=== PATIENT | female | born 1955 | race Caucasian/White ===

== ENCOUNTER 2020-01-16 09:33 | Outpatient (CLI) | payer BC, SELFPAY ==
--- NOTE | ~2020-01-16 | MM_ITS ---
EXAMINATION: MM screening kaushik BI w saray HISTORY: Screening mammogram TECHNIQUE: Craniocaudal and mediolateral oblique 3-D tomosynthesis images were obtained and synthetic 2-D images were generated. CAD analysis was submitted and interpreted. COMPARISON: Comparison to multiple prior studies sequentially, with oldest reviewed study dated 03/07. BREAST PARENCHYMAL COMPOSITION: The breasts are heterogeneously dense, which may obscure small masses . FINDINGS: There is no evidence of suspicious mass, calcification, or architectural distortion to sugg est malignancy in either breast. There has been no suspicious interval change. IMPRESSION: 1. No mammographic evidence of malignancy. 2. Recommend routine screening mammography in one year. BI-RADS Category 1: Negative Reviewed, dictated and finalized at location A.
== END 2020-01-16 09:34 | disposition home or self-care (01) ==
PROVIDERS: PCP Physician Assistant; Visit Provider Obstetrics & Gynecology
DX: Z12.31 Encounter for screening mammogram for malignant neoplasm of breast (principal)
CPT/HCPCS: 77063; 77067

== ENCOUNTER 2020-02-03 12:11 | Emergency (ER) | payer BC, SELFPAY ==
--- NOTE | ~2020-02-03 | XR_ITS ---
XR ankle RT min 3V DATE: 02/03/2020 12:42 INDICATION: Twisted ankle going down is the patella. Lateral pain. TECHNIQUE: 4 views COMPARISON: None FINDINGS: Plantar calcaneal enthesopathy, without erosive change or periostitis. No fracture or dislocation of the ankle or disruption of the ankle mortise. No periosteal reaction or bone destruction. IMPRESSION: Plantar calcaneal enthesopathy Reviewed, dictated and finalized at location A.
[2020-02-03 12:20] VITALS: BP 154/92; PULSE 94; RESP 20; TEMP 36.2; O2SAT 96
--- NOTE | 2020-02-03 12:33 | ED.LOWEXIN ---
HPI - Extremity Injury (Lower) General Chief Complaint: Extremity Injury, Lower Stated Complaint: right ankle pain Time Seen by Provider: 02/03/20 12:33 Source: patient Mode of arrival: ambulatory Limitations: no limitations History of Present Illness HPI Narrative: Sanaz Wren is a 64 yo female with a PMH of RA, smoking, who fell down the hill while drinking brush last night and twisted her right ankle. Pain is posterior that comes around to the right lateral side of ankle and she wants an x-ray to make sure it is only sprain Related Data Home Medications Medication Instructions Recorded Confirmed amoxicillin 500 mg PO DAILY 02/03/20 02/03/20 budesonide-formoterol [Symbicort] 1 inh INHALATION DAILY 02/03/20 02/03/20 celecoxib 200 mg PO DAILY 02/03/20 02/03/20 gabapentin 300 mg PO DIRECTED 02/03/20 02/03/20 lamotrigine 200 mg PO DAILY 02/03/20 02/03/20 leflunomide 20 mg PO DAILY 02/03/20 02/03/20 mometasone 0.1 % TOPICAL DIRECTED 02/03/20 02/03/20 prednisone 5 mg PO DAILY 02/03/20 02/03/20 tramadol 50 mg PO DIRECTED 02/03/20 02/03/20 venlafaxine 225 mg PO DIRECTED 02/03/20 02/03/20 Allergies Allergy/AdvReac Type Severity Reaction Status Date / Time iodine Allergy Severe HIVES Verified 02/03/20 12:22 crab Allergy Unknown hives, Verified 02/03/20 12:22 throat swells shellfish derived Allergy Unknown unknown Verified 02/03/20 12:22 Shrimp Allergy Unknown unkown Uncoded 02/03/20 12:22 Review of Systems Review of Systems: Narrative: CONSTITUTIONAL: Denies fever, chills, sweats. EYES: Denies visual changes, redness, discharge. ENT: Denies rhinorrhea, congestion, sore throat, otalgia. CARDIOVASCULAR: Denies chest pain, palpitations, edema. RESPIRATORY: Denies dyspnea, wheezing, cough GASTROINTESTINAL: Denies abdominal pain, nausea, vomiting, diarrhea. GENITOURINARY: Denies dysuria, hematuria, abnormal discharge SKIN: Denies rash or itching. NEUROLOGIC: Denies numbness, or focal weakness. PSYCHIATRIC: Denies anxiety or depression. Right ankle lateral pain PMFSH Family History Family History Father Cerebrovascular accident, Onset Age: 62 Patient's father is , Onset Age: 62 Other Diabetes mellitus Family history of alcoholism Family history of arthritis Family history of mental disorder Social History Social History Smoking status: Current every day smoker Second hand tobacco smoke exposure: No Alcohol intake: never Comments At time of signature, I agree with nursing past medical, surgical, social and family history. There is no relevant family history pertinent to the presenting complaint. Blood pressure is elevated probably due to pain; referred to follow-up with primary Exam Narrative: Exam Narrative: GENERAL: This is a well-nourished, well-developed patient, in mild distress. HEAD: normocephalic, atraumatic. EYES: Sclera clear/white. Vision is grossly intact. EARS: External ears normal, . Hearing grossly intact. NOSE: External nose normal without nasal discharge, nares without redness, no rhinorrhea. THROAT: Mucous membranes moist, NECK: Neck supple, CARDIOVASCULAR: Regular rate and rhythm without murmurs, gallops, or rubs. RESPIRATORY: Clear to auscultation. Breath sounds equal bilaterally. No wheezes, rales, or rhonchi. GASTROINTESTINAL: Abdomen soft, SKIN: warm, intact with no suspicious lesions or rash, good texture and turgor. NEURO: awake, alert, and oriented to person, place and time. There were no obvious focal neurologic abnormalities. Steady gait EXTREMITIES: Normal range of motion on L- Pain on Posterior ankle with motion, Lateral side pain, able to flex without movement BACK: Nontender without deformity Course Course Emergency Course: Xray of L ankle -plantar calcaneal enthesopathy pt using boot at home -continue using boot at
== END 2020-02-03 13:06 | disposition home or self-care (01) ==
PROVIDERS: Emergency Provider Nurse Practitioner; PCP Physician Assistant
DX: S93.401A Sprain of unspecified ligament of right ankle, initial encounter (principal); S96.911A Strain of unspecified muscle and tendon at ankle and foot level, right foot, initial encounter; W17.81XA Fall down embankment (hill), initial encounter; Z96.649 Presence of unspecified artificial hip joint; F32.9 Major depressive disorder, single episode, unspecified; M32.9 Systemic lupus erythematosus, unspecified; F17.200 Nicotine dependence, unspecified, uncomplicated
CPT/HCPCS: 73610; 99213; G0463

== ENCOUNTER 2020-04-12 13:54 | Emergency (ER) | payer BC, SELFPAY ==
--- NOTE | ~2020-04-12 | XR_ITS ---
EXAMINATION: XR chest 2V DATE: 04/12/2020 14:43 INDICATION: Cough and wheezing. TECHNIQUE: Frontal and lateral views of the chest were obtained. COMPARISON: Chest 2 views 01/01/2018 FINDINGS: There are airspace opacities in left upper lobe, consistent with pneumonia. No pleural effu blaise or pneumothorax. The heart size is normal. IMPRESSION: 1. Left upper lobe pneumonia. Reviewed, dictated and finalized at location A.
[2020-04-12 14:05] VITALS: BP 139/71; PULSE 120; RESP 26; TEMP 37.7; O2SAT 92
--- NOTE | 2020-04-12 14:09 | ED.URI ---
HPI - URI/Sore Throat General Chief Complaint: Unspecified Stated Complaint: cough fever chills Time Seen by Provider: 04/12/20 14:10 Source: patient and RN notes reviewed History of Present Illness HPI Narrative: Patient is a 65-year-old female who presents the urgent care with complaints of cough, fever, chills, dizziness, headache, wheezing. Patient states she does have a chronic cough and is a longtime smoker. Patient states that she was directed by her PCP to be seen at the facility due to her cold-like symptoms. Patient did get a COVID test scheduled for tomorrow. States that her symptoms started approximately 10 days ago and seem to be worsening. Patient states that she has been using her prescription tramadol for symptom relief and reports a fever of 100 Fahrenheit to be the highest value. Patient states that she does get winded easily. Patient seems to be slightly confused. Patient spouse confirms confusion. Patient and spouse aware of the plan of care. Some parts of this dictation were generated by voice recognition software and may contain typographical and/or grammatical inaccuracies. Related Data Home Medications Medication Instructions Recorded Confirmed celecoxib 200 mg PO DAILY 02/03/20 04/12/20 gabapentin 300 mg PO DIRECTED 02/03/20 04/12/20 lamotrigine 200 mg PO DAILY 02/03/20 04/12/20 leflunomide 20 mg PO DAILY 02/03/20 04/12/20 tramadol 50 mg PO DIRECTED 02/03/20 04/12/20 venlafaxine 225 mg PO DIRECTED 02/03/20 04/12/20 folic acid 1 mg PO DAILY 04/12/20 04/12/20 Allergies Allergy/AdvReac Type Severity Reaction Status Date / Time iodine Allergy Severe HIVES Verified 04/12/20 14:18 crab Allergy Unknown hives, Verified 04/12/20 14:18 throat swells shellfish derived Allergy Unknown unknown Verified 04/12/20 14:18 Shrimp Allergy Unknown unkown Uncoded 02/03/20 12:22 Review of Systems Review of Systems: Narrative: CONSTITUTIONAL: Reports of fever, chills, sweats EYES: Denies visual changes, redness, or discharge. ENT: Denies rhinorrhea, congestion, sore throat, or otalgia. CARDIOVASCULAR: Denies chest pain, palpitations, or edema. RESPIRATORY: Reports of cough and shortness of breath GASTROINTESTINAL: Denies abdominal pain, nausea, vomiting, or diarrhea. GENITOURINARY: Denies dysuria or hematuria. SKIN: Denies rash or itching. MUSCULOSKELETAL: Reports of body aches NEUROLOGIC: Reports of dizziness and fatigue All other systems reviewed are negative, except as documented in HPI. PMFSH Social History Social History Smoking status: Current every day smoker Second hand tobacco smoke exposure: No Alcohol intake: never Comments At the time of my signature, I reviewed and agree with the nursing past medical, surgical, social, and family history. There is no relevant family history pertinent to the patient complaint. Exam Narrative: Exam Narrative: GENERAL: This is a well-nourished, well-developed patient, diaphoretic HEAD: normocephalic, atraumatic. EYES: Pinpoint pupils. Sclera clear/white. Vision is grossly intact. EARS: External ears normal NOSE: External nose normal with no obvious nasal discharge, nares without redness, no rhinorrhea. THROAT: Mucous membranes dry, posterior pharynx clear. Mild postnasal drainage NECK: Neck supple CARDIOVASCULAR: Tachycardic RESPIRATORY: Crackles and expiratory wheezes to left upper lobe, slightly diminished left lower lobe SKIN: Diaphoretic/pale and poor turgor. Dry mouth NEURO: A&O 3, slightly confused which was confirmed by patient's spouse; moves all extremities without difficulty and follows commands EXTREMITIES: No clubbing, cyanosis, or edema. Course Vital Signs Vital signs: Vital Signs Temperature 100 F H 04/12/20 14:05 Pulse Rate 120 H 04/12/20 14:05 Respiratory Rate 26 H 04/12/20 14:05 Blood Pressure 139/71 04/12/20 14:05 Pulse Oximetry 92 04/12/20 14:05
--- NOTE | 2020-04-12 14:52 | ECG_ITS ---
Measurements Intervals [place] Rate: 114 P: 32 SC: 128 QRS: 34 QRSD: 93 T: 22 QT: 306 QTc: 422 Interpretive Statements SINUS TACHYCARDIA POSSIBLE LEFT ATRIAL ENLARGEMENT INCOMPLETE RIGHT BUNDLE BRANCH BLOCK ABNORMAL ECG Electronically Signed On 04-12-2020 18:46:28 CDT by Som Segundo D.O.
== END 2020-04-12 15:05 | disposition short-term general hospital (02) ==
PROVIDERS: Emergency Provider Nurse Practitioner Family; PCP Internal Medicine
DX: J18.9 Pneumonia, unspecified organism (principal); M06.9 Rheumatoid arthritis, unspecified; Z96.649 Presence of unspecified artificial hip joint; M32.9 Systemic lupus erythematosus, unspecified; F32.9 Major depressive disorder, single episode, unspecified; I45.10 Unspecified right bundle-branch block
CPT/HCPCS: 71046; 87804; 93005; 99213; G0463

== ENCOUNTER 2020-07-02 11:32 | Emergency (ER) | payer BC, SELFPAY ==
--- NOTE | ~2020-07-02 | XR_ITS ---
EXAMINATION: XR foot LT min 3V DATE: 07/02/2020 12:00 INDICATION: Medial tarsal pain after stepping wrong. TECHNIQUE: Dorsoplantar, two oblique and lateral views of the left foot were obtained. COMPARISON: None. FINDINGS: Alignment is normal. No fracture. Mild polyarticular osteoarthritis at the first metatarsophalangeal and multiple tarsometatarsal and interphalangeal joints. Small plantar calcaneal spur and tiny enthes opathic ossicles at the distal Achilles tendon. Small bone islands at the distal fibular metadiaphysi s at the base of the first proximal phalanx. Diffuse osteopenia. Soft tissue swelling at the dorsal m edial aspect of the midfoot. IMPRESSION: 1. Mild scattered degenerative skeletal changes. No acute osseous abnormality. Reviewed, dictated and finalized at location [facility] [employer]
[2020-07-02 11:39] VITALS: BP 157/104; PULSE 86; RESP 16; TEMP 36.1; O2SAT 98
--- NOTE | 2020-07-02 12:27 | ED.LOWEXIN ---
HPI - Extremity Injury (Lower) General Chief Complaint: Extremity Injury, Lower Stated Complaint: Lower extremity injury/foot Time Seen by Provider: 07/02/20 12:00 Source: patient and RN notes reviewed Mode of arrival: ambulatory Limitations: no limitations History of Present Illness HPI Narrative: 65-year-old female who presents to express care with complaints of pain to her her left foot since day before yesterday. Patient states that she was standing and turned pivoting on her left foot and heard a pop in foot. Patient states that she has been having some severe pain to the medial aspect of her left foot and some swelling noted there and under left lateral malleolus. Patient states that pain is a 10/10 with some movements of her foot, patient is ambulating on foot with a limp. Patient states that for the past 2 nights she has taken left over [place] so she could sleep and has been using ice to her foot along with anti-inflammatory medication such as Ibuprofen. Patient does have history of lupus and rheumatoid arthritis. MD complaint: foot injury Onset (ago): day(s) (2) Injury: Left: foot (medial aspect foot lateral ankle under malleolus) Type of Injury: other (pivoted foot) Place: home Severity: severe Severity scale (1-10): 10 Relieving factors: cold therapy, rest and other (left over [place]) Exacerbating factors: weight bearing Context: other (pivoted heard pop) Associated symptoms: snap/pop sensation, swelling and able to partially bear weight Other symptoms: none Treatments prior to arrival: cold therapy and other (left over [place] pain medication) Related Data Home Medications Medication Instructions Recorded Confirmed celecoxib 200 mg PO DAILY 02/03/20 07/02/20 gabapentin 300 mg PO DIRECTED 02/03/20 07/02/20 lamotrigine 200 mg PO DAILY 02/03/20 07/02/20 leflunomide 20 mg PO DAILY 02/03/20 07/02/20 tramadol 50 mg PO DIRECTED 02/03/20 07/02/20 venlafaxine 225 mg PO DIRECTED 02/03/20 07/02/20 folic acid 1 mg PO DAILY 04/12/20 07/02/20 abatacept (with maltose) 250 mg 500 mg IVPB ONCE 04/20/20 07/02/20 intravenous solution acetaminophen 650 mg 1,300 mg PO QAM tablet 04/20/20 07/02/20 tablet,extended release cholecalciferol (vitamin D3) 125 125 mcg PO DAILY 04/20/20 07/02/20 mcg (5,000 unit) capsule diphenhydramine 25 2 tablet PO .qhs tablet 04/20/20 07/02/20 mg-acetaminophen 500 mg tablet evening primrose oil-linoleic 3 cap PO .QHS cap 04/20/20 07/02/20 acid-gamolenic acid 1,000 mg capsule prednisolone 5 mg tablet 5 mg PO BID 04/20/20 07/02/20 valacyclovir 500 mg tablet 500 mg PO DAILY 04/20/20 07/02/20 Allergies Allergy/AdvReac Type Severity Reaction Status Date / Time iodine Allergy Severe HIVES Verified 07/02/20 12:05 crab Allergy Unknown hives, Verified 07/02/20 12:05 throat swells shellfish derived Allergy Unknown unknown Verified 07/02/20 12:05 Shrimp Allergy Unknown unkown Uncoded 02/03/20 12:22 Review of Systems Review of Systems: Narrative: CONSTITUTIONAL: Denies fever, chills, or sweats. EYES: Denies visual changes, redness, or discharge. ENT: Denies rhinorrhea, congestion, sore throat, or otalgia. CARDIOVASCULAR: Denies chest pain, palpitations, or edema. RESPIRATORY: Denies cough or dyspnea. GASTROINTESTINAL: Denies abdominal pain, nausea, vomiting, or diarrhea. GENITOURINARY: Denies dysuria or hematuria. SKIN: Denies rash or itching. MUSCULOSKELETAL:History of chronic back pain,positive for left dorsal medial foot pain and swelling with swelling also to lateral area under malleolus. NEUROLOGIC: Denies headache, numbness, or weakness. PSYCHIATRIC: Positive history of anxiety or depression. All systems reviewed & are unremarkable except as noted in HPI and below PMFSH Past Medical History Medical History (Updated 07/04/20 @ 13:51 by Janet Villegas NP) Chronic back pain Depression History of hysteroscopy Lupus Rheumatoid arthritis Surgical History Surgical Histor
== END 2020-07-02 12:49 | disposition home or self-care (01) ==
PROVIDERS: Emergency Provider Registered Nurse; PCP Internal Medicine
DX: M19.072 Primary osteoarthritis, left ankle and foot (principal); F17.200 Nicotine dependence, unspecified, uncomplicated; M06.9 Rheumatoid arthritis, unspecified; M32.9 Systemic lupus erythematosus, unspecified
CPT/HCPCS: 73630; 99213; G0463

== ENCOUNTER 2021-05-15 13:25 | Outpatient (CLI) | payer BC, SELFPAY ==
--- NOTE | ~2021-05-15 | MMUS_ITS ---
EXAMINATION: MM diagnostic kaushik BI w saray, US breast LT complete HISTORY: Left axillary lump TECHNIQUE: ML, MLO and craniocaudal 3-D tomosynthesis images of both breasts were performed and synth etic 2-D images were generated. CAD analysis was submitted and interpreted. High resolution complete left breast ultrasound including all 4 quadrants and subareolar area and left axillary ultrasound was performed. COMPARISON: 01/16/2020, 02/04/2018, 01/02/2016 bilateral digital screening mammogram examinations BREAST PARENCHYMAL COMPOSITION: The breasts are heterogeneously dense, which may obscure small masses . FINDINGS: MAMMOGRAPHIC FINDINGS: Scattered bilateral benign calcifications. No suspicious mass or architectural distortion, malignant calcification, skin thickening or retraction or significant new or developing density is detected. ULTRASOUND: No suspicious mass or shadowing grossly of sonographic abnormality of the left breast or left axilla is detected. IMPRESSION: 1. Benign findings 2. Routine mammographic screening is recommended. BI-RADS Category 2: Benign finding(s). Reviewed, dictated and finalized at location A. IMPRESSION: 1. Benign findings 2. Routine mammographic screening is recommended. BI-RADS Category 2: Benign finding(s).
== END 2021-05-15 13:26 | disposition home or self-care (01) ==
LOC: ANHIMG 13:29
PROVIDERS: PCP Physician Assistant; Visit Provider Student in an Organized Health Care Education/Training Program
DX: N63.10 Unspecified lump in the right breast, unspecified quadrant (principal); N63.20 Unspecified lump in the left breast, unspecified quadrant; R92.2 Inconclusive mammogram
CPT/HCPCS: 76641; 77062; 77066; G0279

== ENCOUNTER 2022-10-14 01:28 | Day surgery (SDC) | payer BC, SELFPAY ==
[2022-08-26 15:10] VITALS: BMI 33.3
[2022-10-06 11:25] VITALS: BMI 33.3
[2022-10-14 06:15] VITALS: BP 144/86; PULSE 94; RESP 18; TEMP 36.3; O2SAT 96
[2022-10-14 06:24] VITALS: BMI 32.5
[2022-10-14] MEDS: LACTATED RINGERS 1,000 ML 150 ML IV CONT (06:35)
--- NOTE | 2022-10-14 07:35 | PM.HPGS ---
History of Present Illness History of Present Illness Consent: Risks, benefits, and alternatives have been discussed and questions answered. Patient agrees to proceed with procedure. Chief complaint: neoplasm screening Narrative: Sanaz Wren is a 67 year old female with history of colon polyps Review of Systems Constitutional: Constitutional: Denies headache(s) and Denies weakness Eyes: Eyes: Denies blurry vision ENT: Reports Normal hearing present, Denies headache(s) and Denies neck pain Cardiovascular: Cardiovascular: Denies chest pain and Denies dyspnea Respiratory: Respiratory: Denies dyspnea Gastrointestinal: Gastrointestinal: Reports no additional gastrointestinal complaints Genitourinary: Genitourinary: Denies dysuria Musculoskeletal: Musculoskeletal: Denies neck pain Integumentary/Breasts: Skin/Breast: Denies dry skin Neurologic: Reports Normal hearing present, Denies headache(s) and Denies weakness Psychiatric: Psychiatric: Denies anxiety Endocrine: Endocrine: Denies change in body appearance Hematologic/Lymphatic: Hematologic/Lymphatic: Denies easy bleeding Allergic/Immunologic: Allergic/Immunologic: Denies urticaria PMFSH Past Medical History Medical History (Updated 10/14/22 @ 07:36 by Elian Cintron MD) Adenomatous colon polyp Arthritis of carpometacarpal (CMC) joint of right thumb Chronic back pain Depression Lupus Macrocytosis Rheumatoid arthritis Surgical History Surgical History (Updated 06/02/22 @ 10:28 by SERVANDO Vargas) History of hysteroscopy History of right hip replacement History of tubal ligation Previous section 1979, 1983 Family History Family History (Updated 06/02/22 @ 10:29 by SERVANDO Vargas) Father Cerebrovascular accident, Onset Age: 62 Patient's father is , Onset Age: 62 Other Diabetes mellitus Family history of alcoholism Family history of arthritis Family history of mental disorder Hypertension Social History Social History (Updated 06/02/22 @ 10:29 by SERVANDO Vargas) Smoking packs per day: 1 Smoking cigarettes per day: 20.0 Years smoked: 30 Smoking pack-years: 30.00 Smoking status: Current every day smoker Tobacco type: cigarettes Second hand tobacco smoke exposure: No Additional smoking assessment comments: TAKING CHANTIX- COUPLE PUFFS A DAY CURRENTLY Alcohol intake: former Alcohol use details: 2013 alcohol abuse Substance use: never Substance use type: does not use Other substance usage details: takes tramadol Living arrangements: with family Gender identity (if verbalized by the patient): Female Spiritual care concerns: No Meds Home Medications and Allergies Home Medications Medication Instructions Recorded Confirmed Type celecoxib 200 mg capsule 200 mg PO DAILY PRN Pain 02/03/20 10/14/22 History gabapentin 300 mg capsule 600 mg PO HS 02/03/20 10/14/22 History lamotrigine 200 mg tablet 200 mg PO DAILY 02/03/20 10/14/22 History venlafaxine 225 mg tablet,extended 150 mg PO DIRECTED 02/03/20 10/14/22 History release 24 hr diphenhydramine 25 2 tablet PO .qhs 04/20/20 10/14/22 History mg-acetaminophen 500 mg tablet (Tylenol PM Extra Strength) evening primrose oil-linoleic 3 cap PO .QHS 04/20/20 10/14/22 History acid-gamolenic acid 1,000 mg capsule ([place] Oil) folic acid 1 mg tablet 1 mg PO DAILY 07/16/21 10/14/22 History methotrexate sodium 2.5 mg tablet 20 mg PO WEEKLY 07/16/21 10/14/22 History multivitamin (Daily Multi-Vitamin 1 tablet PO DAILY 07/16/21 10/14/22 History tablet) albuterol sulfate 90 mcg/actuation 2 puff inhalation Q4-6H PRN 02/17/22 10/14/22 Rx aerosol inhaler (ProAir HFA) shortness of breath or wheezing #8.5 grams hydrochlorothiazide 25 mg tablet 25 mg PO DAILY #90 tabs 03/27/22 10/14/22 Rx ropinirole 0.5 mg tablet See Rx Instructions .Route 08/04/22 10/14/22 Rx .COMPLEX
--- NOTE | 2022-10-14 07:39 | WPDANESEPPF ---
Anes - Initial Pre Proc Eval Procedure: Operation Date: 10/14/22 07:30 Proposed Procedures p Colonoscopy - Elian Cintron MD Date/Time: 10/14/22 07:39 Surgeon: Elian Cintron MD Pre Op Diagnosis: neoplasm screening Patient Data Age: 67 Gender: F Height: 1.65 m Weight: 88.6 kg Last Vital Signs Temp 97.4 F L 10/14/22 06:15 Pulse 94 10/14/22 06:15 Resp 18 10/14/22 06:15 BP 144/86 H 10/14/22 06:15 Pulse Ox 96 10/14/22 06:15 O2 Del Method Room Air 10/14/22 06:15 Allergies Allergy/AdvReac Type Severity Reaction Status Date / Time crab Allergy Severe Swelling Verified 10/14/22 06:20 of Lip/Tongue/Throat iodine Allergy Severe Swelling Verified 10/14/22 06:20 of Lip/Tongue/Throat shellfish derived Allergy Severe Swelling Verified 10/14/22 06:20 of Lip/Tongue/Throat Shrimp Allergy Severe Swelling Uncoded 10/14/22 06:20 of Lip/Tongue/Throat Home Medications Medication Instructions Recorded Confirmed Type celecoxib 200 mg capsule 200 mg PO DAILY PRN Pain 02/03/20 10/14/22 History gabapentin 300 mg capsule 600 mg PO HS 02/03/20 10/14/22 History lamotrigine 200 mg tablet 200 mg PO DAILY 02/03/20 10/14/22 History venlafaxine 225 mg tablet,extended 150 mg PO DIRECTED 02/03/20 10/14/22 History release 24 hr diphenhydramine 25 2 tablet PO .qhs 04/20/20 10/14/22 History mg-acetaminophen 500 mg tablet (Tylenol PM Extra Strength) evening primrose oil-linoleic 3 cap PO .QHS 04/20/20 10/14/22 History acid-gamolenic acid 1,000 mg capsule ([place] Oil) folic acid 1 mg tablet 1 mg PO DAILY 07/16/21 10/14/22 History methotrexate sodium 2.5 mg tablet 20 mg PO WEEKLY 07/16/21 10/14/22 History multivitamin (Daily Multi-Vitamin 1 tablet PO DAILY 07/16/21 10/14/22 History tablet) albuterol sulfate 90 mcg/actuation 2 puff inhalation Q4-6H PRN 02/17/22 10/14/22 Rx aerosol inhaler (ProAir HFA) shortness of breath or wheezing #8.5 grams hydrochlorothiazide 25 mg tablet 25 mg PO DAILY #90 tabs 03/27/22 10/14/22 Rx ropinirole 0.5 mg tablet See Rx Instructions .Route 08/04/22 10/14/22 Rx .COMPLEX #90 tabs sodium,potassium,mag sulfates 17.5 See Rx Instructions PO .COMPLEX 08/06/22 10/14/22 Rx gram-3.13 gram-1.6 gram oral soln #354 mL (Suprep Bowel Prep Kit) benzonatate 200 mg capsule 200 mg PO TID PRN cough #30 caps 08/22/22 10/14/22 Rx cyclobenzaprine 5 mg tablet 5 mg PO DAILY 08/26/22 10/14/22 History ibuprofen 600 mg tablet 600 mg PO DAILY 08/26/22 10/14/22 History leflunomide 10 mg tablet 10 mg PO DAILY 08/26/22 10/14/22 History potassium 99 mg tablet 99 mg PO DAILY 08/26/22 10/14/22 History turmeric 400 mg capsule 400 mg PO DAILY 08/26/22 10/14/22 History valacyclovir 500 mg tablet 500 mg PO BID PRN FLAREUP 08/26/22 10/14/22 History vitamin D3-vitamin K2 6,000 mg BYMOUTH BID 08/26/22 10/14/22 History varenicline 0.5 mg (11)-1 mg (42) See Rx Instructions PO PER PKG DIR 09/19/22 10/14/22 Rx tablets in a dose pack (Chantix #53 ea Starting Month Box) trazodone 50 mg tablet 50 mg PO QHS #30 tabs 10/08/22 10/14/22 Rx budesonide-formoterol HFA 160 See Rx Instructions .Route 10/10/22 10/14/22 Rx mcg-4.5 mcg/actuation aerosol .COMPLEX ##30.6 inhaler (Symbicort) doxepin 6 mg tablet 6 mg PO QHS #90 tabs 10/10/22 10/14/22 Rx Patient hx anesthesia problems: none Family hx anesthesia problems: none Results Review: All pre-operative results and documents have been reviewed as part of the pre-operative evaluation. [facility] Past Medical History Medical History (Updated 10/14/22 @ 07:36 by Elian Cintron MD) Adenomatous colon polyp Arthritis of carpometacarpal (CMC) joint of right thumb Chronic back pain Depression Lupus Macrocytosis Rheumatoid arthritis Surgical History Surgical History (Updated 06/02/22 @ 10:28 by SERVANDO Vargas) History of hysteroscopy History of right hip
[2022-10-14 07:59] VITALS: BP 125/67; PULSE 77; RESP 20; O2SAT 96
[2022-10-14 08:09] VITALS: BP 123/71; PULSE 75; RESP 22; O2SAT 100
[2022-10-14 08:19] VITALS: BP 126/67; PULSE 75; RESP 20; O2SAT 100
== END 2022-10-14 08:33 | disposition home or self-care (01) ==
PROVIDERS: PCP Physician Assistant; Visit Provider Internal Medicine Gastroenterology
PROC: 0DJD8ZZ Inspection of Lower Intestinal Tract, Via Natural or Artificial Opening Endoscopic (ICD-10-PCS; CPT 45378; principal; 2022-10-14 07:30)
DX: Z12.11 Encounter for screening for malignant neoplasm of colon (principal); K57.30 Diverticulosis of large intestine without perforation or abscess without bleeding; Z86.010 Personal history of colon polyps; M06.9 Rheumatoid arthritis, unspecified; M32.9 Systemic lupus erythematosus, unspecified; F32.A Depression, unspecified; F17.210 Nicotine dependence, cigarettes, uncomplicated; E66.9 Obesity, unspecified; Z68.32 Body mass index [BMI] 32.0-32.9, adult; Z79.51 Long term (current) use of inhaled steroids
CPT/HCPCS: 45378; J2001; J2704; J7120

== ENCOUNTER 2022-11-19 11:22 | Outpatient (CLI) | payer BC, SELFPAY ==
--- NOTE | ~2022-11-19 | XR_ITS ---
EXAMINATION: XR lg joint inject/asp w image DATE: 11/19/2022 12:48 INDICATION: Left hip arthritis. TECHNIQUE: A time-out was performed to verify the patient's name, date of , and procedure to b e performed. The procedure including the risks, benefits, and alternatives was discussed with the pat ient. Risks discussed included bleeding and infection. The patient understood the risks and agreed to proceed. The skin overlying the left hip joint was prepped and draped in usual sterile fashion. An esthetic was administered with 1% lidocaine subcutaneously. A 22 G needle was advanced under fluoros copic guidance into the joint. Subsequently, injectate consisting of 2 mL 0.5% bupivacaine and 1 mL 80 mg/mL Depo-Medrol was instilled. The needle was removed and the entry site was cleaned and dresse d. There were no immediate complications. Fluoroscopy exposure time was 0.1 minutes. The total numbe r of images was 1. FINDINGS: Real-time fluoroscopy demonstrates the needle in the left hip joint. Patient's pain prior t o procedure:110. Patient's pain following the procedure: 0/10. IMPRESSION: 1. Fluoroscopy guided left hip joint injection of local anesthetic and steroid with decrease in the p atient's presenting pain. Reviewed, dictated and finalized at location A. IMPRESSION: 1. Fluoroscopy guided left hip joint injection of local anesthetic and steroid with decrease in the patient's presenting pain.
== END 2022-11-19 11:23 | disposition home or self-care (01) ==
PROVIDERS: PCP Physician Assistant; Visit Provider Orthopaedic Surgery
DX: M16.12 Unilateral primary osteoarthritis, left hip (principal)
CPT/HCPCS: 20610; 77002; J1040

== ENCOUNTER 2022-12-17 08:15 | Outpatient (CLI) | payer BC, SELFPAY ==
--- NOTE | ~2022-12-17 | MM_ITS ---
EXAMINATION: MM screening kaushik BI w saray HISTORY: Screening mammogram TECHNIQUE: Craniocaudal and mediolateral oblique 3-D tomosynthesis images were obtained and synthetic 2-D images were generated. CAD analysis was submitted and interpreted. COMPARISON: 05/15/2021 diagnostic bilateral mammogram and complete left breast ultrasound 01/16/2020, 02/04/2018 bilateral screening mammogram examinations BREAST PARENCHYMAL COMPOSITION: The breasts are extremely dense, which lowers the sensitivity of mamm ography. FINDINGS: Chronic occasional bilateral benign calcifications. There is a cluster of grouped indeterminate microcalcifications in the upper outer left breast. Diagn ostic left mammogram with magnification views is recommended. Otherwise there is no evidence of suspicious mass, calcification, or architectural distortion to sugg est malignancy in either breast. There has been no other suspicious interval change. IMPRESSION: 1. Grouped indeterminate upper outer quadrant left microcalcifications 2. Diagnostic left mammogram with magnification views is recommended, with ultrasound if required BI-RADS Category 0: Incomplete: Needs additional imaging evaluation. Reviewed, dictated and finalized at location A. IMPRESSION: 1. Grouped indeterminate upper outer quadrant left microcalcifications 2. Diagnostic left mammogram with magnification views is recommended, with ultr asound if required BI-RADS Category 0: Incomplete: Needs additional imaging evaluation.
== END 2022-12-17 08:16 | disposition home or self-care (01) ==
LOC: ANHIMG 08:18
PROVIDERS: PCP Physician Assistant; Visit Provider Obstetrics & Gynecology
DX: Z12.31 Encounter for screening mammogram for malignant neoplasm of breast (principal); R92.8 Other abnormal and inconclusive findings on diagnostic imaging of breast
CPT/HCPCS: 77063; 77067

== ENCOUNTER → 2023-01-09 07:48 | Outpatient (CLI) | payer BC, SELFPAY ==
--- NOTE | ~2023-01-09 | MMUS_ITS ---
EXAMINATION: MM diagnostic mammo unilat LT, US breast LT limited HISTORY: Grouped indeterminate upper outer quadrant left microcalcifications on 12/17/2022 screening m ammogram TECHNIQUE: ML view.. Magnification views. CAD analysis was submitted and interpreted. High resolution upper outer quadrant left breast ultrasound was performed. COMPARISON: 12/17/2022 screening mammogram FINDINGS: MAMMOGRAPHIC FINDINGS: Scattered benign microcalcifications are noted. No suspicious features of the microcalcifications are noted. ULTRASOUND: No suspicious mass or shadowing or other significant sonographic abnormality is noted in the upper ou ter quadrant of the left breast. IMPRESSION: 1. Benign calcifications 2. Routine annual mammographic screening is recommended. BI-RADS Category 2: Benign finding(s). Reviewed, dictated and finalized at location A. IMPRESSION: 1. Benign calcifications 2. Routine annual mammographic screening is recommended. BI-RADS Category 2: Benign finding(s).
== END ==
PROVIDERS: PCP Internal Medicine; Visit Provider Obstetrics & Gynecology
DX: R92.1 Mammographic calcification found on diagnostic imaging of breast (principal)
CPT/HCPCS: 76642; 77065

== ENCOUNTER → 2023-01-09 07:51 | Outpatient (CLI) | payer BC, SELFPAY ==
--- NOTE | ~2023-01-09 | CT_ITS ---
CT Scan of the Chest without Contrast: Clinical Indication: Lung cancer screening, personal history of nicotine dependence Technique: Contiguous sections were acquired throughout the chest without intravenous contrast. Dose reduction technique was used on this scan by utilizing automated exposure control and iterative recon struction technique. The dose-length product (DLP) was 153.11 mGy-cm. Findings: There is no evidence of any significant mediastinal, hilar or axillary lymphadenopathy. The mediastin al soft tissues appear normal. There is no evidence of pleural or pericardial effusion. There are several tiny subcentimeter, peripheral pulmonary nodules at the right lung apex/right upper lobe. Probable minimal subpleural reticulation in the lungs. Images through the upper abdomen reveal no abnormalities. Impression: Lung RADS 2: Benign appearance. 12 month follow-up screening CT advised. Suggestion of minimal subpleural reticulation the lungs. Very early chronic interstitial disease is a consideration. Reviewed, dictated and finalized at [facility]. Impression: Lung RADS 2: Benign appearance. 12 month follow-up screening CT advised. Suggestion of minimal subpleural reticulation the lungs. Very early chronic int erstitial disease is a consideration.
== END ==
PROVIDERS: PCP Internal Medicine; Visit Provider Physician Assistant
DX: Z12.2 Encounter for screening for malignant neoplasm of respiratory organs (principal); R91.8 Other nonspecific abnormal finding of lung field; Z87.891 Personal history of nicotine dependence
CPT/HCPCS: 71271

== ENCOUNTER 2023-03-20 08:10 | Outpatient (CLI) | payer BC, SELFPAY ==
[2023-03-20 09:00] VITALS: PULSE 103; O2SAT 95
[2023-03-20 09:05] VITALS: PULSE 120; O2SAT 87
[2023-03-20 09:06] VITALS: O2SAT 88
[2023-03-20 09:07] VITALS: O2SAT 93
[2023-03-20 09:15] VITALS: PULSE 100; O2SAT 94
[2023-03-20 09:42] LABS: Basophils Percent Auto 0.5 % (0.2-1.2); Eosinophils Absolute Auto 0.2 K/mm3 (0-0.3); Eosinophils Percent Auto 3.1 % (0-4.4); Hematocrit 34.6 % (37.0-47.0); Hemoglobin 11.3 g/dL (12.0-15.0); Immature Granulocyte Absolute 0.03 K/mm3 (0.00-0.031); Immature Granulocyte Percent A 0.4 % (0-0.5); Lymphocytes Absolute Auto 0.89 K/mm3 (0.9-3.2); Mean Corpuscular HGB Conc 32.7 g/dl (32-36); Mean Corpuscular Hemoglobin 33.1 pg (26-34); Mean Corpuscular Volume 101.5 fl (80-100); Mean Platelet Volume 9.5 fl (7.4-10.4); Monocytes Absolute Auto 0.6 K/mm3 (0.1-0.6); Monocytes Percent Auto 7.9 % (2.6-8.5); Neutrophils Absolute Auto 5.7 K/mm3 (1.3-6.7); Neutrophils Percent Auto 76.1 % (45.5-73.1); Platelet Count Result 292 k/mm3 (150-375); Red Blood Count 3.41 M/mm3 (4.2-5.4); Red Cell Distribution Width 14.6 % (11.5-14.5); White Blood Count 7.4 K/mm3 (4.5-10.0)
[2023-03-20 10:02] LABS: Rheumatoid Factor < 12.0 IU/ML (<12)
--- NOTE | 2023-03-20 10:23 | HOMEO2EVAL ---
Evaluation was performed at [facility] Home Oxygen Evaluation RC: Home Oxygen (O2) Evaluation Start: 03/20/23 10:19 Freq: Status: Active Protocol: RPE Activity Type Activity Date Activity User E-sign Co-sign Detail Recorded Client Recorded Date Recorded By Document 03/20/23 09:00 [email or web address] 03/20/23 10:23 RAY Document 03/20/23 09:05 [email or web address] [email or web address] 03/20/23 10:23 RAY Document 03/20/23 09:06 [email or web address] [email or web address] 03/20/23 10:23 RAY Document 03/20/23 09:07 [email or web address] 03/20/23 10:23 RAY Document 03/20/23 09:15 RAY [email or web address] 03/20/23 10:23 RAY 03/20/23 03/20/23 03/20/23 09:00 09:05 09:06 Home O2 Evaluation [Oxygen] -Test Phase Resting Exercise Exercise -Oxygen Delivery Room Air Room Air Nasal Cannula -Oxygen Flow Rate (L/min) 1 [Pulse Oximetry] -Pulse Oximetry (90-100 %) 95 87 L 88 L [Pulse Rate] -Pulse Rate (60-100 beats/min) 103 H 120 H [Exercise] -Ambulation Distance (feet) -Ambulation Distance (meters) [Comments] -Home Oxygen Evaluation Comments [Charges] -Treatment Charges O2 Evaluation - Outpatient 03/20/23 03/20/23 09:07 09:15 Home O2 Evaluation [Oxygen] -Test Phase Exercise Resting -Oxygen Delivery Nasal Cannula Room Air -Oxygen Flow Rate (L/min) 2 [Pulse Oximetry] -Pulse Oximetry (90-100 %) 93 94 [Pulse Rate] -Pulse Rate (60-100 beats/min) 100 [Exercise] -Ambulation Distance (feet) 800 -Ambulation Distance (meters) 243.82 [Comments] -Home Oxygen Evaluation Comments Home O2 at 2 liters with activity [Charges] -Treatment Charges
[2023-03-20 10:43] LABS: CRP 0.9 mg/dL (<1.0)
[2023-03-20 11:38] LABS: Creatine Kinase 62 U/L (30-135)
[2023-03-20 12:01] LABS: Erythrocyte Sedimentation Rate 118 mm/hr (0-20)
--- NOTE | 2023-03-20 14:36 | WPDPFTINT ---
PFT Procedure Performed PFT Procedure Performed Spirometry with Pre/Post Bronchodilator Plethysmography (Lung Vol) Diffusing Cap (DLCO) Flow Vol Loop PFT Interpretation This is a pulmonary function test with pre and post-bronchodilator spirometry, plethysmography and diffusing capacity. The test was performed and results interpreted in accordance with the 2019 and 2005 ATS/ERS Task Force guidelines respectively using the Global Lung Function Initiative-2012 reference equations. Patient demonstrated good effort and cooperation. Reproducibility criteria were met. The quality of the pre bronchodilator spirometry maneuver was Grade B and post bronchodilator spirometry maneuver was Grade B. Findings: Spirometry: The contour the inspiratory and expiratory flow tracing are normal. The pre bronchodilator FVC is 2.36 L, 76% predicted. The pre bronchodilator FEV1 is 1.74 L, 72% predicted. The pre bronchodilator FEV1: FVC ratio 74%. The post bronchodilator FVC is 2.56 L, representing an 8% increase. The post bronchodilator FEV1 is 1.92 L, representing a 10% increase. The post bronchodilator FEV1: FVC ratio is 75%. Plethysmography: The total lung capacity is 4.85 L, 93% predicted. The functional residual capacity is 2.28 L, 77% predicted. The residual volume is 2.11 L, 99% predicted. The slow vital capacity is 2.74 L. Diffusing capacity: The diffusing capacity unadjusted for hemoglobin and carboxyhemoglobin is 14.8, 69% predicted. The diffusing capacity adjusted for alveolar volume is 3.73, 86% predicted. Impression: The slow vital capacity is greater than the forced vital capacity with a mildly decreased FEV1 and with a normal FEV1: FVC ratio. This is suggestive of small airways disease. There is no significant improvement after inhaling a single dose of albuterol. The lung volumes are normal. The diffusing capacity unadjusted for hemoglobin and carboxyhemoglobin is mildly decreased and normalizes when adjusted for alveolar volume. There are no prior studies for comparison
[2023-03-24 01:24] LABS: ANA Cascade Screen Negative (Negative)
[2023-03-24 20:10] LABS: Aldolase 5.6 U/L (<=8.1)
[2023-03-25 22:51] LABS: Anti Cyclic Citrullinated Pept <16 Units (<20)
[2023-03-26 14:37] LABS: ANCA Screen Negative (Negative)
== END 2023-03-20 08:11 | disposition home or self-care (01) ==
PROVIDERS: PCP Physician Assistant; Visit Provider Internal Medicine Pulmonary Disease
DX: J84.9 Interstitial pulmonary disease, unspecified (principal); R91.1 Solitary pulmonary nodule; J44.9 Chronic obstructive pulmonary disease, unspecified; J98.4 Other disorders of lung; R06.00 Dyspnea, unspecified; J40 Bronchitis, not specified as acute or chronic; Z72.0 Tobacco use
CPT/HCPCS: 36415; 82085; 82550; 85025; 85652; 86036; 86038; 86140; 86200; 86331; 86430; 86606; 86609; 94060; 94618; 94726; 94729